=== PATIENT | male | born 1985 | race Caucasian/White ===

== ENCOUNTER 2020-01-17 23:18 | Inpatient (IN) | payer BC ==
--- NOTE | 2020-01-18 00:31 | ED ---
Recheck HPI - General Chief Complaint: Recheck/Abnormal Lab/Rx Stated Complaint: Facial swelling Time Seen by Provider: 01/17/20 23:42 Source: patient Mode of arrival: ambulatory Limitations: no limitations - Related Data Allergies Allergy/AdvReac Type Severity Reaction Status Date / Time codeine AdvReac Nausea & Verified 01/17/20 23:40 Vomiting Review of Systems ROS Statement: Those systems with pertinent positive or pertinent negative responses have been documented in the HPI. ROS Other: All systems not noted in ROS Statement are negative. Past Medical History Past Medical History: No Reported History History of Any Multi-Drug Resistant Organisms: None Reported Past Surgical History: Tonsillectomy Additional Past Surgical History / Comment(s): chest surgery Past Psychological History: No Psychological Hx Reported Smoking Status: Never smoker Past Alcohol Use History: Occasional Past Drug Use History: None Reported General Exam Limitations: no limitations Course Vital Signs 01/17/20 01/18/20 23:35 01:24 Temperature 99.8 F H 99.5 F Pulse Rate 86 96 Respiratory 16 18 Rate Blood Pressure 129/82 120/77 O2 Sat by Pulse 100 100 Oximetry Disposition Clinical Impression: Facial cellulitis, Failure of outpatient treatment Disposition: ADMITTED IP TO THIS [facility] Condition: Good Is patient prescribed a controlled substance at d/c from ED?: No Referrals: Alvaro Hayes MD [Primary Care Provider] - 1-2 days
[2020-01-18] MEDS ORDERED: KETOROLAC 30 MG/ML 1 ML VIAL IVP STA (01:06)
[2020-01-18] MEDS ORDERED: SODIUM CHLORIDE 0.9% 500 ML 500 ML IV STA (01:06)
[2020-01-18] MEDS ORDERED: SODIUM CHLORIDE 0.9% 1,000 ML IV STA (01:06)
[2020-01-18] MEDS ORDERED: VANCOMYCIN IV PER PHARMACY 1 EACH MISC MISCELLANE PRN ×2 (01:06→20:29)
[2020-01-18] MEDS ORDERED: DEXAMETHASONE SOD PHOSPHATE 10 MG/ML 1 ML VIAL IV STA (01:06)
[2020-01-18] MEDS ORDERED: VANCOMYCIN 1,250 MG in SODIUM CHLORIDE 0.9% 250 ML IVPB ONE ×2 (02:00→10:00)
[2020-01-18] MEDS: MUPIROCIN 2% OINT 22 GM TUBE TOPICAL SCH ×4 (02:03→22:05)
[2020-01-18] MEDS ORDERED: SODIUM CHLORIDE 0.9% 1,000 ML IV ONE (02:20)
[2020-01-18 08:52] LABS: Basophils % (A) 0 %; Eosinophils % (A) 0 %; HCT 44.4 % (39.0-53.0); Lymphocytes # (A) 0.4 k/uL (1.0-4.8); Lymphocytes % (A) 4 %; MCH 32.2 pg (25.0-35.0); MCHC 33.9 g/dL (31.0-37.0); MCV 95.2 fL (80.0-100.0); Monocytes # (A) 0.2 k/uL (0-1.0); Monocytes % (A) 2 %; Neutrophils # (A) 11.7 k/uL (1.3-7.7); Neutrophils % (A) 94 %; Platelet Count 260 k/uL (150-450); RBC 4.67 m/uL (4.30-5.90); RDW 12.3 % (11.5-15.5); WBC 12.5 k/uL (3.8-10.6)
[2020-01-18 09:15] LABS: African American GFR (CKD) >90 (>60 ml/min/1.73 sqM); Anion Gap 10 mmol/L; Blood Urea Nitrogen 20 mg/dL (9-20); Calcium 8.8 mg/dL (8.4-10.2); Carbon Dioxide 24 mmol/L (22-30); Chloride 104 mmol/L (98-107); Glucose 212 mg/dL (74-99); Non-African American GFR(CKD) >90 (>60 ml/min/1.73 sqM); Potassium 4.7 mmol/L (3.5-5.1); Sodium 138 mmol/L (137-145)
[2020-01-18] MEDS: NAPROXEN 250 MG TAB PO SCH ×3 (13:44→22:03)
[2020-01-18] MEDS: VANCOMYCIN 1,000 MG in SODIUM CHLORIDE 0.9% 250 ML IVPB SCH (17:34)
--- NOTE | 2020-01-18 20:38 | P.HPIM ---
History of Present Illness H&P Date: 01/18/20 Chief Complaint: Infection of the cheek History of presenting complaint: This is a pleasant 34-year-old patient of Dr. Hayes. In rather good health. Patient about 4 weeks ago started getting what he thought was a requiring infection of the right cheek. Patient was using some wysh-bks-nbnfohq cream. Does some improvement in the last 2 weeks he started getting worse. Patient does use a razor on his face and shaves every day. Started becoming painful and red. More swollen on the right side. Patient also had similar lesions on the left side. Patient last shaved was about 3 days ago. Patient has multiple areas of red areas with some discharge and tenderness on the right side of the face. Also on the left side of the face in the acevedo area. Denies any fever an d chills. No toothache. Patient is able to chew. Able to get around. Review of systems: GEN.: None EYES: None HEENT: None NECK: None RESPIRATORY: None CARDIOVASCULAR: None GASTROINTESTINAL: None GENITOURINARY: None MUSCULOSKELETAL: None LYMPHATICS: None HEMATOLOGICAL: None PSYCHIATRY: None NEUROLOGICAL: None Past medical history to include: Unremarkable Social history: . Does not smoke. Alcohol occasionally. 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 EYES: Pupils equal. Conjunctiva normal. HEENT: External appearance of nose and ears normal, oral cavity grossly normal. Patient has multiple areas of abscess in the acevedo area, comfortable. Speech on the right side also noticed scattered on the left side more so in the hair foll icle area. Patient has a very slight about 2-3 mm acevedo. Areas of redness surrounding the same. NECK: JVD not raised; masses not palpable. HEART: First and second heart sounds are normal; no edema. LUNGS: Respiratory rate normal; clear to auscultation. ABDOMEN: Soft, nontender, liver spleen not palpable, no masses palpable. PSYCH: Alert and oriented x3; mood and affect normal. NEUROLOGICAL: Cranial nerves grossly intact; no facial asymmetry, power and sensation grossly intact. LYMPHATICS: No lymph nodes palpable in the axilla and neck Assessment: -This is a patient is at 4 weeks of infection and the acevedo area has use of ekhj-luh-azfmlxn medications and discontinued uses a razor up to 4 days ago. Patient seems to have a combination of erysipelas and multiple folliculitis with repeated infections. And surrounding cellulitis. Plan: Patient started on vancomycin. Left pharmacy dose the same. Patient is ambulatory. We'll add naproxen 5 to telemetry affect. Patient starting a diet. Also Bactroban ointment has been given. Advised not to shave for the present time. Not to scratch the area. ID consultation was done. Past Medical History Past Medical History: No Reported History History of Any Multi-Drug Resistant Organisms: None Reported Past Surgical History: Coronary Bypass/CABG, Tonsillectomy Additional Past Surgical History / Comment(s): chest surgery for pigeon chest when he was 14 Past Anesthesia/Blood Transfusion Reactions: No Reported Reaction Past Psychological History: No Psychological Hx Reported Smoking Status: Never smoker Past Alcohol Use History: Occasional Past Drug Use History: None Reported - Past Family History Father Family Medical History: No Reported History Mother Family Medical History: No Reported History Medications and Allergies Home Medications Medication Instructions Recorded Confirmed Type Sulfamethoxazole/Trimethoprim 1 each PO BID 01/18/20 01/18/20 History [Bactrim DS 800-160 mg] Allergies Allergy/AdvReac Type Severity Reaction Status Date / Time codeine AdvReac Nausea & Verified 01/18/20 09:19 Vomiting Physical Exam Vitals: Vital Signs Temp Pulse Pulse Resp BP BP Pulse Ox 01/18/20 09:07 16 01/18/20 07:00 97.9 F 90 16 99/63 94 L 01/18/20 03:51 16 01/18/20 03:32 98.5 F 92 18 108/71 97 01/18/20 02:50 98.7 F 94 14 111/57 95 01/18/20 01:24 99.5 F 96 18 120/77 100 01/17/20 23:35 99.8 F H 86 16 129/82 100 Intake and Output 01/17/20 01/18/20 01/18/20 22:59 06:59 14:59 Intake Total 250 Balance 250 Intake: Intake, IV Titration 250 Amount Vancomycin 1,250 mg In 250 Sodium Chloride 0.9% 250 ml @ 125 mls/hr IVPB ONCE ONE Rx#:[id number] Other: Weight 70.76 kg Results CBC & Chem 7: 01/18/20 08:22 01/18/20 08:22 Labs: Abnormal Lab Results - Last 24 Hours (Table) 01/18/20 01/18/20 Range/Units 08:22 08:22 WBC 12.5 H (3.8-10.6) k/uL Neutrophils # 11.7 H (1.3-7.7) k/uL Lymphocytes # 0.4 L (1.0-4.8) k/uL Glucose 212 H (74-99) mg/dL Thrombosis Risk Factor Assmnt - Choose All That Apply Any of the Below Risk Factors Present?: No Other Risk Factors: No Other congenital or acquired thrombophilia - If yes, enter type in comment: No Thrombosis Risk Factor Assessment Level: Very Low Risk
--- NOTE | 2020-01-19 01:25 | P.CONS ---
History of Present Illness - Reason for Consult Consult date: 01/18/20 Facial cellulitis Requesting physician: Nicola Thomas - Chief Complaint right sided facial swelling and redness x 4 weeks - History of Present Illness Patient is a 34-year-old male otherwise healthy started getting sick about 4 weeks ago when the patient developed a small area of irritation on his right side of facial area patient thought it was a ringworm infection and start using some ehlr-nmh-ucwpqkf cream did not have any improvement after he shaved the area it has spread becoming more swollen red and painful for the patient has been evaluated the outpatient setting by his primary care physician and the patient was treated with a course of oral Bactrim DS however the patient did not have resolution he was noticed to have worsening swelling and redness of the right side of the face and has become more swollen and discomfort more of a dull aching pain about 5-6 out of 10 and radiation denies significant purulent drainage from the area or high-grade fever with the symptom the patient went to the local ER. Patient did have a CT of the face he has been diagnosed with a facial cellulitis subsequently patient be transferred to the [facility] for further management of underlying cellulitis on admission to this facility the patient did have low-grade fever of 99.8 he did have white count of 12.5 patient was started on vancomycin pharmacy to dose infectious was consulted for further management of antibiotic therapy. Review of Systems Positive point has been mentioned in HPI rest of the systems are negative Past Medical History Past Medical History: No Reported History History of Any Multi-Drug Resistant Organisms: None Reported Past Surgical History: Coronary Bypass/CABG, Tonsillectomy Additional Past Surgical History / Comment(s): chest surgery for pigeon chest when he was 14 Past Anesthesia/Blood Transfusion Reactions: No Reported Reaction Past Psychological History: No Psychological Hx Reported Smoking Status: Never smoker Past Alcohol Use History: Occasional Past Drug Use History: None Reported - Past Family History Father Family Medical History: No Reported History Mother Family Medical History: No Reported History Medications and Allergies Home Medications Medication Instructions Recorded Confirmed Type Sulfamethoxazole/Trimethoprim 1 each PO BID 01/18/20 01/18/20 History [Bactrim DS 800-160 mg] Allergies Allergy/AdvReac Type Severity Reaction Status Date / Time codeine AdvReac Nausea & Verified 01/18/20 09:19 Vomiting Physical Exam Vitals: Vital Signs Temp Pulse Pulse Resp BP BP Pulse Ox 01/18/20 15:34 16 01/18/20 15:00 98.5 F 77 16 109/66 95 01/18/20 09:07 16 01/18/20 07:00 97.9 F 90 16 99/63 94 L 01/18/20 03:51 16 01/18/20 03:32 98.5 F 92 18 108/71 97 01/18/20 02:50 98.7 F 94 14 111/57 95 01/18/20 01:24 99.5 F 96 18 120/77 100 01/17/20 23:35 99.8 F H 86 16 129/82 100 Intake and Output 01/18/20 01/18/20 01/18/20 06:59 14:59 22:59 Intake Total 250 1030 Balance 250 1030 Intake: Intake, IV Titration 250 850 Amount Sodium Chloride 0.9% 1, 600 000 ml @ 100 mls/hr IV . Q10H ONE Rx#:[id number] Vancomycin 1,250 mg In 250 Sodium Chloride 0.9% 250 ml @ 125 mls/hr IVPB ONCE ONE Rx#:[id number] Vancomycin 1,250 mg In 250 Sodium Chloride 0.9% 250 ml @ 125 mls/hr IVPB ONCE ONE Rx#:[id number] Oral 180 Other: # Voids 1 1 Weight 70.76 kg GENERAL DESCRIPTION: Middle-aged male lying in bed, no distress. No tachypnea or accessory muscle of respiration use. HEENT: Shows Pallor , no scleral icterus. Oral mucous membrane is dry. NECK: Trachea central, no thyromegaly. LUNGS: Unlabored breathing. Clear to auscultation anteriorly. No wheeze or crackle. HEART: S1, S2, regular rate and rhythm. ABDOMEN: Soft, no tenderness , guarding or rigidity EXTREMITIES: No edema of feet. SKIN: Right facial area with evidence of diffuse folliculitis and swelling and redness no purulent drainage. NEUROLOGICAL: The patient is awake, alert, oriented x3, mood and affect normal Results CBC & Chem 7: 01/18/20 08:22 01/18/20 08:22 Labs: Abnormal Lab Results - Last 24 Hours (Table) 01/18/20 01/18/20 Range/Units 08:22 08:22 WBC 12.5 H (3.8-10.6) k/uL Neutrophils # 11.7 H (1.3-7.7) k/uL Lymphocytes # 0.4 L (1.0-4.8) k/uL Glucose 212 H (74-99) mg/dL Assessment and Plan Assessment: -patient admitted hospital with right facial cellulitis that has started as a folliculitis more likely a streptococcal infection that has failed to respond to outpatient Bactrim DS therapy more likely because of the burden of disease (1) Facial cellulitis Current Visit: Yes Status: Acute Code(s): L03.211 - CELLULITIS OF FACE SNO MED Code(s): 409656940 (2) Failure of outpatient treatment Current Visit: Yes Status: Acute Code(s): Z78.9 - OTHER SPECIFIED HEALTH STATUS SNOMED Code(s): 165516861 Plan: 1-we will obtain local wound cultures if the area started to drain 2-vancomycin pharmacy to dose her with a target trough of 15 while watching her kidney function and Vanco trough closely. We will follow on clinical condition and cultures to further adjust medication if needed Thank you for this consultation we will follow the patient along with you Time with Patient: Greater than 30
[2020-01-19] MEDS: VANCOMYCIN 1,000 MG in SODIUM CHLORIDE 0.9% 250 ML IVPB SCH ×3 (02:47→17:34)
[2020-01-19 07:49] LABS: African American GFR (CKD) >90 (>60 ml/min/1.73 sqM); Non-African American GFR(CKD) >90 (>60 ml/min/1.73 sqM)
[2020-01-19] MEDS: NAPROXEN 250 MG TAB PO SCH ×3 (09:39→20:31)
[2020-01-19] MEDS: MUPIROCIN 2% OINT 22 GM TUBE TOPICAL SCH ×3 (09:40→20:32)
[2020-01-19] MEDS ORDERED: VANCOMYCIN TROUGH DUE 1 EACH MISC MISCELLANE ONE (17:00)
--- NOTE | 2020-01-19 21:15 | P.PN ---
Progress Note - Text Progress Note Date: 01/19/20 Chief Complaint: Infection of the cheek History of presenting complaint: This is a pleasant 34-year-old patient of Dr. Hayes. In rather good health. Patient about 4 weeks ago started getting what he thought was a requiring infection of the right cheek. Patient was using some mnhs-yyy-gzbqwoc cream. Does some improvement in the last 2 weeks he started getting worse. Patient does use a razor on his face and shaves every day. Started becoming painful and red. More swollen on the right side. Patient also had similar lesions on the left side. Patient last shaved was about 3 days ago. Patient has multiple areas of red areas with some discharge and tenderness on the right side of the face. Also on the left side of the face in the acevedo area. Denies any fever and chills. No toothache. Patient is able to chew. Able to get around. Admitted with severe cellulitis and follow colitis of both the cheeks more on the right side Today-pain is slightly better controlled. Getting IV vancomycin. Up and about in the room. Tolerating a diet. Review of systems: Was done for constitutional, cardiovascular, GI, pulmonary. relevant finding as above Active Medications Vancomycin HCl 1,000 mg/ (Sodium Chloride) 250 mls @ 125 mls/hr IVPB Q8H [facility] Last Admin: 01/19/20 17:34 Dose: 125 mls/hr Documented by: Mupirocin (Bactroban Oint) 1 applic TOPICAL TID [facility] Last Admin: 01/19/20 20:32 Dose: 1 applic Documented by: Naproxen (Naprosyn) 250 mg PO TID [facility] Last Admin: 01/19/20 20:31 Dose: 250 mg Documented by: Physical examination: VITAL SIGNS: 97.9, 103, 16, 124/71, 93% on room air GENERAL:, comfortable. EYES: Pupils equal. Conjunctiva normal. HEENT: External appearance of nose and ears normal, oral cavity grossly normal. Patient has multiple areas of abscess in the acevedo area, comfortable. Speech on the right side also noticed scattered on the left side more so in the hair follicle area. Patient has a very slight about 2-3 mm acevedo. Areas of redness surrounding the same. NECK: JVD not raised; masses not palpable. HEART: First and second heart sounds are normal; no edema. LUNGS: Respiratory rate normal; clear to auscultation. ABDOMEN: Soft, nontender, liver spleen not palpable, no masses palpable. PSYCH: Alert and oriented x3; mood and affect normal. Assessment: -This is a patient is at 4 weeks of infection and the acevedo area has use of havg-hjg-tirjpin medications and discontinued uses a razor up to 4 days ago. Patient seems to have a combination of erysipelas and multiple folliculitis with repeated infections. And surrounding cellulitis.-Slow to respond Plan: Continue vancomycin until inflammation. Discussed with Dr. Antoine from ID. We'll follow the patient and he daily to determine when patient stable to go home..
--- NOTE | 2020-01-20 02:05 | PN ---
PROGRESS NOTE DATE OF SERVICE: 01/19/2020 REASON FOR FOLLOWUP: Right facial abscess and cellulitis. INTERVAL HISTORY: The patient is currently afebrile. The patient right facial swelling and redness have slightly decreased. The patient denies having any chest pain, shortness of breath or cough. No abdominal pain or diarrhea. PHYSICAL EXAMINATION: Blood pressure 124/74 with a pulse of 83, temperature 98.5. He is 96% on room air. General description is a middle-aged male up in the bed in no distress. HEENT EXAMINATION: Right facial area swelling and redness minimally decreased. LUNGS: Unlabored breathing, clear to auscultation anteriorly. HEART: S1, S2. Regular rate and rhythm. ABDOMEN: Soft, no tenderness. LABS: No new labs have been obtained today. DIAGNOSTIC IMPRESSION AND PLAN: Patient with right facial abscess and cellulitis with diffuse folliculitis, likely streptococcal disease. The patient is covered with vancomycin to continue. Culture had been obtained to guide antibiotic therapy further and continue with supportive care. MMODL / IJN: [id number] /
[2020-01-20] MEDS: VANCOMYCIN 1,000 MG in SODIUM CHLORIDE 0.9% 250 ML IVPB SCH ×3 (03:18→17:47)
[2020-01-20 07:47] LABS: Basophils % (A) 0 %; Eosinophils # (A) 0.2 k/uL (0-0.7); Eosinophils % (A) 1 %; Lymphocytes # (A) 0.9 k/uL (1.0-4.8); Lymphocytes % (A) 9 %; MCH 33.3 pg (25.0-35.0); MCHC 34.8 g/dL (31.0-37.0); MCV 95.8 fL (80.0-100.0); Mean Platelet Volume 6.8; Monocytes # (A) 0.7 k/uL (0-1.0); Monocytes % (A) 7 %; Neutrophils # (A) 8.5 k/uL (1.3-7.7); Neutrophils % (A) 81 %; Platelet Count 241 k/uL (150-450); RBC 4.49 m/uL (4.30-5.90); RDW 12.3 % (11.5-15.5); WBC 10.4 k/uL (3.8-10.6)
[2020-01-20] MEDS: NAPROXEN 250 MG TAB PO SCH ×3 (08:06→20:37)
[2020-01-20] MEDS: MUPIROCIN 2% OINT 22 GM TUBE TOPICAL SCH ×3 (08:07→20:37)
[2020-01-20 08:56] LABS: African American GFR (CKD) >90 (>60 ml/min/1.73 sqM); Anion Gap 7 mmol/L; Blood Urea Nitrogen 12 mg/dL (9-20); Calcium 8.7 mg/dL (8.4-10.2); Carbon Dioxide 28 mmol/L (22-30); Chloride 105 mmol/L (98-107); Glucose 87 mg/dL (74-99); Non-African American GFR(CKD) >90 (>60 ml/min/1.73 sqM); Potassium 4.7 mmol/L (3.5-5.1); Sodium 140 mmol/L (137-145)
--- NOTE | 2020-01-20 19:34 | P.PN ---
Progress Note - Text Progress Note Date: 01/20/20 Chief Complaint: Infection of the cheek History of presenting complaint: This is a pleasant 34-year-old patient of Dr. Hayes. In rather good health. Patient about 4 weeks ago started getting what he thought was a requiring infection of the right cheek. Patient was using some ovfp-tzq-xsacqpg cream. Does some improvement in the last 2 weeks he started getting worse. Patient does use a razor on his face and shaves every day. Started becoming painful and red. More swollen on the right side. Patient also had similar lesions on the left side. Patient last shaved was about 3 days ago. Patient has multiple areas of red areas with some discharge and tenderness on the right side of the face. Also on the left side of the face in the acevedo area. Denies any fever and chills. No toothache. Patient is able to chew. Able to get around. Admitted with severe cellulitis and folliculitis of both the cheeks more on the right side Today-patient continues to get IV vancomycin. Pain and swelling slightly improving on the right side. Patient actually does feel better. Review of systems: Was done for constitutional, cardiovascular, GI, pulmonary. relevant finding as above Active Medications Vancomycin HCl 1,000 mg/ (Sodium Chloride) 250 mls @ 125 mls/hr IVPB Q8H [facility] Last Admin: 01/20/20 17:47 Dose: 125 mls/hr Documented by: Miscellaneous Information (Vancomycin Trough Due) 0 each MISCELLANE DIRECTED ONE Stop: 01/21/20 09:01 Mupirocin (Bactroban Oint) 1 applic TOPICAL TID [facility] Last Admin: 01/20/20 16:08 Dose: 1 applic Documented by: Naproxen (Naprosyn) 250 mg PO TID [facility] Last Admin: 01/20/20 16:08 Dose: 250 mg Documented by: Physical examination: VITAL SIGNS: 98.5, 77, 16, 120/74, 96% on room air GENERAL:, comfortable. EYES: Pupils equal. Conjunctiva normal. HEENT: External appearance of nose and ears normal, oral cavity grossly normal. Patient has multiple areas of abscess in the acevedo area, comfortable. More on the right side compared to the left side. Scattered areas also. Slight improv ement on the right side. NECK: JVD not raised; masses not palpable. HEART: First and second heart sounds are normal; no edema. LUNGS: Respiratory rate normal; clear to auscultation. ABDOMEN: Soft, nontender, liver spleen not palpable, no masses palpable. PSYCH: Alert and oriented x3; mood and affect normal. Assessment: -This is a patient is at 4 weeks of infection and the acevedo area has use of ruao-bjf-secooxi medications and discontinued uses a razor up to 4 days ago. Patient seems to have a combination of erysipelas and multiple folliculitis with repeated infections. And surrounding cellulitis.-Improving slowly Plan: Continue with IV vancomycin and anti-inflammatory. Patient slowly improving. Discussed with the patient. At least 1 over 2 more days in the hospital depe nding on clinical course and discussion with ID.
--- NOTE | 2020-01-20 23:06 | PN ---
PROGRESS NOTE DATE OF SERVICE: 01/20/2020 REASON FOR FOLLOWUP: Right facial cellulitis. INTERVAL HISTORY: The patient is currently afebrile. The patient's right facial area pain and swelling have slightly improved. He did have some drainage. No chest pain, shortness of breath or cough. No abdominal pain or diarrhea. PHYSICAL EXAMINATION: Blood pressure is 123/71 with a pulse of 101, temperature 99.3. He is 95% on room air. General description is a middle-aged male up in the bed in no distress. HEENT EXAMINATION: Right facial area swelling and redness slightly decreased. LUNGS: Unlabored breathing. Clear to auscultation anteriorly. HEART: S1, S2. Regular rate and rhythm. ABDOMEN: Soft. No tenderness. LABS: Hemoglobin 15.0, white count of 10.4, creatinine 0.77. Vancomycin trough is slightly low at 11.3. DIAGNOSTIC IMPRESSION AND PLAN: Patient with right facial cellulitis and abscess with slow clinical response to antibiotic; could be because of the low vancomycin trough. Dose to be adjusted up. With the culture so far negative for any MRSA, we will add cefazolin 2 grams q.8 hours and see the response to it. Will wait for the culture to determine his discharge antibiotics. Continue with supportive care. MMODL / IJN: [id number] /
[2020-01-21] MEDS: VANCOMYCIN 1,000 MG in SODIUM CHLORIDE 0.9% 250 ML IVPB SCH (03:18)
[2020-01-21] MEDS: NAPROXEN 250 MG TAB PO SCH ×3 (07:43→20:12)
[2020-01-21] MEDS: MUPIROCIN 2% OINT 22 GM TUBE TOPICAL SCH ×3 (07:45→20:13)
[2020-01-21 08:27] LABS: African American GFR (CKD) >90 (>60 ml/min/1.73 sqM); Non-African American GFR(CKD) >90 (>60 ml/min/1.73 sqM)
[2020-01-21] MEDS ORDERED: VANCOMYCIN TROUGH DUE 1 EACH MISC MISCELLANE ONE (09:00)
[2020-01-21] MEDS: VANCOMYCIN 1,250 MG in SODIUM CHLORIDE 0.9% 250 ML IVPB SCH ×2 (10:11→17:32)
--- NOTE | 2020-01-21 14:20 | PN ---
PROGRESS NOTE DATE OF SERVICE: 01/21/2020 REASON FOR FOLLOWUP: Right facial abscess and cellulitis noted. The patient is currently afebrile. The patient is breathing comfortably. Right facial swelling, redness, induration, slightly decreased area has started to drain. Denies having any chest pain or cough. No abdominal pain and no diarrhea. PHYSICAL EXAMINATION: Blood pressure 123/75 with a pulse of 73, temperature 98.4, he is 97% on room air. General description is a middle-aged male, lying in bed in no distress. RESPIRATORY SYSTEM: Unlabored breathing, clear to auscultation anteriorly. HEART: S1, S2. Regular rate and rhythm. ABDOMEN: Soft, no tenderness. Right facial area swelling and redness has slightly decreased. Did have slight purulent drainage from those cultures. LABS: Vanco level therapeutic at 14.4, creatinine 0.75. Initial culture has been negative so far. DIAGNOSTIC IMPRESSION AND PLAN: Patient with right facial abscess and cellulitis. Some drainage was noticed. Surgery has been consulted to see the need for any surgical drainage. For now we will keep the patient on vancomycin and cefazolin. Repeat culture has been obtained to help determine discharge antibiotics. Plan of care was discussed with the admitting physician. MMODL / IJN: [id number] /
--- NOTE | 2020-01-21 23:13 | P.PN ---
Progress Note - Text Progress Note Date: 01/21/20 Chief Complaint: Infection of the cheek History of presenting complaint: This is a pleasant 34-year-old patient of Dr. Hayes. In rather good health. Patient about 4 weeks ago started getting what he thought was a requiring infection of the right cheek. Patient was using some oyah-ipg-mbrmomb cream. Does some improvement in the last 2 weeks he started getting worse. Patient does use a razor on his face and shaves every day. Started becoming painful and red. More swollen on the right side. Patient also had similar lesions on the left side. Patient last shaved was about 3 days ago. Patient has multiple areas of red areas with some discharge and tenderness on the right side of the face. Also on the left side of the face in the acevedo area. Denies any fever and chills. No toothache. Patient is able to chew. Able to get around. Admitted with severe cellulitis and folliculitis of both the cheeks more on the right side Today-pain swelling slowly improving on the right cheek. Drainage still present. Tolerating a diet. Antibiotic was switched to IV Ancef by Dr. Saeed. escobar Review of systems: Was done for constitutional, cardiovascular, GI, pulmonary. relevant finding as above Active Medications Cefazolin Sodium 2 gm/ Sodium (Chloride) 50 mls @ 100 mls/hr IVPB Q8HR [facility] Last Admin: 01/21/20 17:00 Dose: 100 mls/hr Documented by: Vancomycin HCl 1,250 mg/ (Sodium Chloride) 250 mls @ 125 mls/hr IVPB Q8H [facility] Last Admin: 01/21/20 17:32 Dose: 125 mls/hr Documented by: Mupirocin (Bactroban Oint) 1 applic TOPICAL TID [facility] Last Admin: 01/21/20 20:13 Dose: 1 applic Documented by: Naproxen (Naprosyn) 250 mg PO TID [facility] Last Admin: 01/21/20 20:12 Dose: 250 mg Documented by: Physical examination: VITAL SIGNS: 98.6, 90, 16, 100 3581, 98% room air GENERAL:, comfortable. EYES: Pupils equal. Conjunctiva normal. HEENT: External appearance of nose and ears normal, oral cavity grossly normal. Patient has multiple areas of abscess in the acevedo area, comfortable. More on the right side compared to the left side. Scattered areas also. improvement on the right side. NECK: JVD not raised; masses not palpable. HEART: First and second heart sounds are normal; no edema. LUNGS: Respiratory rate normal; clear to auscultation. ABDOMEN: Soft, nontender, liver spleen not palpable, no masses palpable. PSYCH: Alert and oriented x3; mood and affect normal. INVESTIGATIONS, reviewed in the clinical context: White count 10.4 hemoglobin 15 potassium 4.7 Wound culture-negative Admission labs: White count 12.5 Assessment: -This is a patient is at 4 weeks of infection and the acevedo area has use of vydg-fvv-xcmlswq medications and discontinued uses a razor up to 4 days ago. Patient seems to have a combination of erysipelas and multiple folliculitis with repeated infections. And surrounding cellulitis.-Improving slowly -Leukocytosis from infection-improving Plan: -Patient on IV Ancef. Discussed with Dr. Antoine from ID. And the patient. Repeat cultures are being done. We'll like to give another day of IV antibiotic.
[2020-01-22] MEDS: VANCOMYCIN 1,250 MG in SODIUM CHLORIDE 0.9% 250 ML IVPB SCH ×3 (03:03→18:09)
--- NOTE | 2020-01-22 07:28 | P.GSCN ---
History of Present Illness Consult date: 01/21/20 Reason for Consult: facial abscess Requesting physician: Nicola Thomas History of present illness: CHIEF COMPLAINT: Facial abscess HISTORY OF PRESENT ILLNESS: 34 male who was admitted to the hospital secondary to a facial abscess. General surgery was consulted for further evaluation and possible drainage. PAST MEDICAL HISTORY: See list. PAST SURGICAL HISTORY: See list. SOCIAL HISTORY: No illicit drug use. REVIEW OF SYSTEMS: CONSTITUTIONAL: Denies fever or chills. HEENT: Denies blurred vision, vision changes, or eye pain. Denies hemoptysis CARDIOVASCULAR: Denies chest pain or pressure. RESPIRATORY: No shortness of breath. GASTROINTESTINAL: Denies abdominal pain. Denies nausea vomiting HEMATOLOGIC: Denies bleeding disorders. GENITOURINARY: Denies any blood in urine. SKIN: Denies pruitis. Denies rash. Reports facial abscess PHYSICAL EXAM: VITAL SIGNS: Reviewed. GENERAL: Well-developed in no acute distress. HEENT: No sclera icterus. Extraocular movements grossly intact. Moist buccal mucosa. Head is atraumatic, normocephalic. ABDOMEN: Soft. Nondistended. Nontender. NEUROLOGIC: Alert and oriented. Cranial nerves II through XII grossly intact. SKIN: Patient with abscess to right and left side of jawline LABORATORY DATA: WBC 10.4. Hemoglobin 15.0. Platelet count 241. Wound culture in progress ASSESSMENT: 1. Facial abscess PLAN: -Continue antibiotics -Await wound culture results -Infectious disease following -Continue with nonsurgical treatment at this time. Patient will be reevaluated tomorrow for possible incision and drainage of left sided abscess. Nurse practitioner note has been reviewed by physician. Signing provider agrees with the documented findings, assessment, and plan of care. Past Medical History Past Medical History: No Reported History History of Any Multi-Drug Resistant Organisms: None Reported Past Surgical History: Coronary Bypass/CABG, Tonsillectomy Additional Past Surgical History / Comment(s): chest surgery for pigeon chest when he was 14 Past Anesthesia/Blood Transfusion Reactions: No Reported Reaction Past Psychological History: No Psychological Hx Reported Smoking Status: Never smoker Past Alcohol Use History: Occasional Past Drug Use History: None Reported - Past Family History Father Family Medical History: No Reported History Mother Family Medical History: No Reported History Medications and Allergies Home Medications Medication Instructions Recorded Confirmed Type Sulfamethoxazole/Trimethoprim 1 each PO BID 01/18/20 01/18/20 History [Bactrim DS 800-160 mg] Allergies Allergy/AdvReac Type Severity Reaction Status Date / Time codeine AdvReac Nausea & Verified 01/18/20 09:19 Vomiting Surgical - Exam Vital Signs Temp Pulse Resp BP Pulse Ox 99.8 F H 86 16 129/82 100 01/17/20 23:35 01/17/20 23:35 01/17/20 23:35 01/17/20 23:35 01/17/20 23:35 Results - Labs 01/20/20 06:57 01/21/20 07:55 Microbiology - Last 24 Hours (Table) 01/19/20 17:45 Gram Stain - Preliminary Face Wound Culture - Preliminary 01/19/20 14:30 Gram Stain - Preliminary Face Wound Culture - Preliminary Diabetes panel 01/21/20 Range/Units 07:55 Creatinine 0.75 (0.66-1.25) mg/dL Pituitary panel 01/21/20 Range/Units 07:55 Creatinine 0.75 (0.66-1.25) mg/dL Adrenal panel 01/21/20 Range/Units 07:55 Creatinine 0.75 (0.66-1.25) mg/dL
[2020-01-22] MEDS: NAPROXEN 250 MG TAB PO SCH ×3 (08:56→21:54)
[2020-01-22] MEDS: MUPIROCIN 2% OINT 22 GM TUBE TOPICAL SCH ×3 (08:57→21:54)
--- NOTE | 2020-01-22 15:04 | P.PN ---
Subjective Progress Note Date: 01/22/20 CHIEF COMPLAINT: Facial abscess HISTORY OF PRESENT ILLNESS: Patient seen and examined at the bedside. Patient states his pain is tolerable. Wound culture is negative for growth at 48 hours. Vital signs stable. Patient is afebrile. PHYSICAL EXAM: VITAL SIGNS: Reviewed. GENERAL: Well-developed in no acute distress. HEENT: No sclera icterus. Extraocular movements grossly intact. Moist buccal mucosa. Head is atraumatic, normocephalic. ABDOMEN: Soft. Nondistended. Nontender. NEUROLOGIC: Alert and oriented. Cranial nerves II through XII grossly intact. SKIN: Patient with abscess to right and left side of jawline ASSESSMENT: 1. Facial abscess PLAN: -Continue antibiotics -Infectious disease following -No surgical intervention recommended at this time per Dr. Moraes Nurse practitioner note has been reviewed by physician. Signing provider agrees with the documented findings, assessment, and plan of care. Objective - Vital Signs Vital signs: Vital Signs Temp 98.6 F 01/22/20 07:00 Pulse 78 01/22/20 07:00 Resp 16 01/22/20 07:00 BP 128/83 01/22/20 07:00 Pulse Ox 96 01/22/20 07:00 Intake & Output 01/21/20 01/22/20 01/22/20 18:59 06:59 18:59 Intake Total 400 Balance 400 Intake: Intake, IV Titration 300 Amount Vancomycin 1,250 mg In 250 Sodium Chloride 0.9% 250 ml @ 125 mls/hr IVPB Q8H [facility] Rx#:[id number] ceFAZolin 2 gm In Sodium 50 Chloride 0.9% 50 ml @ 100 mls/hr IVPB Q8HR [facility] Rx# :[id number] Oral 100 Other: Voiding Method Toilet Toilet Toilet # Voids 2 1 - Labs CBC & Chem 7: 01/20/20 06:57 01/21/20 07:55 Labs: Microbiology - Last 24 Hours (Table) 01/21/20 12:40 Gram Stain - Preliminary Face Wound Culture - Preliminary 01/19/20 17:45 Gram Stain - Final Face Wound Culture - Final 01/19/20 14:30 Gram Stain - Final Face Wound Culture - Final
--- NOTE | 2020-01-22 16:19 | PN ---
PROGRESS NOTE DATE OF SERVICE: 01/22/2020 REASON FOR FOLLOWUP: Right facial abscess and cellulitis. INTERVAL HISTORY: The patient is currently afebrile. The patient is breathing comfortably. Right facial pain and swelling have improved. Still has some drainage. No nausea, no vomiting, no abdominal pain or diarrhea. PHYSICAL EXAMINATION: Blood pressure 128/83 with a pulse of 78, temperature 98.6. He is 96% on room air. General description is a middle-aged male up in the room in no distress. Right facial area swelling and redness have slightly decreased; less drainage. LUNGS: Unlabored breathing. Clear to auscultation anteriorly. HEART: S1, S2. Regular rate and rhythm. ABDOMEN: Soft. No tenderness. LABS: No new labs have been obtained today. Wound culture obtained yesterday is showing Gram- positive cocci. DIAGNOSTIC IMPRESSION AND PLAN: Patient with right facial abscess and cellulitis. Patient postponed any drainage. Covered with cefazolin and vancomycin; will continue while waiting for the cultures to finalize. Hopefully finish therapy with oral antibiotics. Continue with supportive care. MMODL / IJN: [id number] /
--- NOTE | 2020-01-22 19:49 | P.PN ---
Progress Note - Text Progress Note Date: 01/22/20 Chief Complaint: Infection of the cheek History of presenting complaint: This is a pleasant 34-year-old patient of Dr. Hayes. In rather good health. Patient about 4 weeks ago started getting what he thought was a requiring infection of the right cheek. Patient was using some ucpa-seq-hgratop cream. Does some improvement in the last 2 weeks he started getting worse. Patient does use a razor on his face and shaves every day. Started becoming painful and red. More swollen on the right side. Patient also had similar lesions on the left side. Patient last shaved was about 3 days ago. Patient has multiple areas of red areas with some discharge and tenderness on the right side of the face. Also on the left side of the face in the acevedo area. Denies any fever and chills. No toothache. Patient is able to chew. Able to get around. Admitted with severe cellulitis and folliculitis of both the cheeks more on the right side Today-continues to improve. Swelling going down. One of the abscesses drained on its own this morning. Review of systems: Was done for constitutional, cardiovascular, GI, pulmonary. relevant finding as above Active Medications Cefazolin Sodium 2 gm/ Sodium (Chloride) 50 mls @ 100 mls/hr IVPB Q8HR [facility] Last Admin: 01/22/20 15:34 Dose: 100 mls/hr Documented by: Vancomycin HCl 1,250 mg/ (Sodium Chloride) 250 mls @ 125 mls/hr IVPB Q8H [facility] Last Admin: 01/22/20 10:57 Dose: 125 mls/hr Documented by: Miscellaneous Information (Vancomycin Trough Due) 0 each MISCELLANE DIRECTED ONE Stop: 01/23/20 09:01 Mupirocin (Bactroban Oint) 1 applic TOPICAL TID [facility] Last Admin: 01/22/20 15:35 Dose: 1 applic Documented by: Naproxen (Naprosyn) 250 mg PO TID [facility] Last Admin: 01/22/20 15:42 Dose: 250 mg Documented by: Physical examination: VITAL SIGNS: 98.6, 78, 16, 128/83, 96% room air GENERAL:, comfortable. EYES: Pupils equal. Conjunctiva normal. HEENT: External appearance of nose and ears normal, oral cavity grossly normal. Patient has multiple areas of abscess in the acevedo area, comfortable. More on the right side compared to the left side. Scattered areas also.-Improving NECK: JVD not raised; masses not palpable. HEART: First and second heart sounds are normal; no edema. LUNGS: Respiratory rate normal; clear to auscultation. ABDOMEN: Soft, nontender, liver spleen not palpable, no masses palpable. PSYCH: Alert and oriented x3; mood and affect normal. INVESTIGATIONS, reviewed in the clinical context: White count 10.4 hemoglobin 15 potassium 4.7 Repeat Wound cultures- rare yeast and rare gram-positive cocci Admission labs: White count 12.5 Assessment: -This is a patient is at 4 weeks of infection and the acevdeo area has use of udlr-sid-chobsxe medications and discontinued uses a razor up to 4 days ago. Patient seems to have a combination of erysipelas and multiple folliculitis with repeated infections. And surrounding cellulitis.-Improving slowly -Leukocytosis from infection-improving -Possible underlying tinea infection. Plan: -Discussed with Dr. Moraes from general surgery-since is already draining on its own no need for I&D. On IV cefazolin and IV vancomycin per Dr. barboza.. We will add fluconazole 150 mg once a week for 3 weeks starting today.
[2020-01-22] MEDS ORDERED: FLUCONAZOLE 150 MG TAB PO STA (19:53)
[2020-01-23] MEDS: VANCOMYCIN 1,250 MG in SODIUM CHLORIDE 0.9% 250 ML IVPB SCH ×2 (02:08→11:17)
[2020-01-23 08:07] VITALS: BP 117/83; PULSE 67; RESP 16; TEMP 98.4
[2020-01-23] MEDS: NAPROXEN 250 MG TAB PO SCH (08:39)
[2020-01-23] MEDS ORDERED: VANCOMYCIN TROUGH DUE 1 EACH MISC MISCELLANE ONE (09:00)
[2020-01-23 09:12] LABS: African American GFR (CKD) >90 (>60 ml/min/1.73 sqM); Anion Gap 5 mmol/L; Blood Urea Nitrogen 14 mg/dL (9-20); Calcium 8.7 mg/dL (8.4-10.2); Carbon Dioxide 30 mmol/L (22-30); Chloride 104 mmol/L (98-107); Glucose 102 mg/dL (74-99); Non-African American GFR(CKD) >90 (>60 ml/min/1.73 sqM); Potassium 4.3 mmol/L (3.5-5.1); Sodium 139 mmol/L (137-145)
[2020-01-23] MEDS: MUPIROCIN 2% OINT 22 GM TUBE TOPICAL SCH (11:17)
--- NOTE | 2020-01-23 12:22 | P.PN ---
Subjective Progress Note Date: 01/23/20 CHIEF COMPLAINT: Facial abscess HISTORY OF PRESENT ILLNESS: Patient seen and examined at the bedside. Patient states his pain is tolerable. Vital signs stable. Patient is afebrile. PHYSICAL EXAM: VITAL SIGNS: Reviewed. GENERAL: Well-developed in no acute distress. HEENT: No sclera icterus. Extraocular movements grossly intact. Moist buccal mucosa. Head is atraumatic, normocephalic. ABDOMEN: Soft. Nondistended. Nontender. NEUROLOGIC: Alert and oriented. Cranial nerves II through XII grossly intact. SKIN: Patient with abscess to right and left side of jawline ASSESSMENT: 1. Facial abscess PLAN: -Continue antibiotics -Infectious disease following -No surgical intervention recommended at this time per Dr. Moraes -We will sign off. Please reconsult if needed. Nurse practitioner note has been reviewed by physician. Signing provider agrees with the documented findings, assessment, and plan of care. Objective - Vital Signs Vital signs: Vital Signs Temp 98.4 F 01/23/20 07:00 Pulse 67 01/23/20 07:00 Resp 16 01/23/20 07:00 BP 117/83 01/23/20 07:00 Pulse Ox 96 01/23/20 07:00 Intake & Output 01/22/20 01/23/20 01/23/20 18:59 06:59 18:59 Intake Total 680 Balance 680 Intake: Intake, IV Titration 300 Amount Vancomycin 1,250 mg In 250 Sodium Chloride 0.9% 250 ml @ 125 mls/hr IVPB Q8H [facility] Rx#:[id number] ceFAZolin 2 gm In Sodium 50 Chloride 0.9% 50 ml @ 100 mls/hr IVPB Q8HR [facility] Rx# :[id number] Oral 380 Other: Voiding Method Toilet Toilet # Voids 2 1 2 - Labs CBC & Chem 7: 01/20/20 06:57 01/23/20 08:40 Labs: Abnormal Lab Results - Last 24 Hours (Table) 01/23/20 Range/Units 08:40 Glucose 102 H (74-99) mg/dL
--- NOTE | 2020-01-23 14:16 | PN ---
PROGRESS NOTE DATE OF SERVICE: 01/23/2020 REASON FOR FOLLOW UP: Facial abscess and cellulitis noted the patient is currently afebrile. He was seen on rounds this morning. Overall pain and discomfort to the right facial area has improved. No chest pain or shortness of breath or cough. No abdominal pain or diarrhea. PHYSICAL EXAMINATION: Blood pressure is 117/83 with a pulse of 67, temperature 98.4. He is 96% on room air. General description is a young male up in the room in no distress. Right facial swelling and redness has improved. LUNGS: Unlabored breathing, clear to auscultation anteriorly. HEART: S1, S2. Regular rate and rhythm. LABS: Creatinine 0.72. Vancomycin trough has been low at 7.7. Culture showing a gram- positive, not completed. DIAGNOSTIC IMPRESSION AND PLAN: Patient with right facial abscess, cellulitis with spontaneous drainage. Culture with gram-positive, possibly strep or MSSA as the patient clinically responded to cefazolin. Vancomycin trough has been very low. Will recommend finish therapy with oral Keflex 500 mg p.o. q.6 hours for 10 days. Prescription has been sent to the pharmacy, questions and concerns were answered. MMODL / IJN: [id number] /
--- NOTE | 2020-01-23 22:40 | P.DS ---
Providers Date of admission: 01/18/20 02:20 Expected date of discharge: 01/23/20 Attending physician: Nicola Thomas Consults: 01/18/20 02:20 Consult Physician Routine Consulting Provider: Lorena Barboza Consult Reason/Comments: infevtions Do you want consulting provider notified?: Yes Primary care physician: [facility] Course: Chief Complaint: Infection of the cheek History of presenting complaint: This is a pleasant 34-year-old patient of Dr. Hayes. In rather good health. Patient about 4 weeks ago started getting what he thought was a requiring infection of the right cheek. Patient was using some pdux-xxe-jdrlqxg cream. Does some improvement in the last 2 weeks he started getting worse. Patient does use a razor on his face and shaves every day. Started becoming painful and red. More swollen on the right side. Patient also had similar lesions on the left side. Patient last shaved was about 3 days ago. Patient has multiple areas of red areas with some discharge and tenderness on the right side of the face. Also on the left side of the face in the acevedo area. Denies any fever and chills. No toothache. Patient is able to chew. Able to get around. Admitted with severe cellulitis and folliculitis of both the cheeks more on the right side. Started on IV vancomycin and IV Ancef as per Dr. barboza from ID. Patient also given 1 dose of one 50 mg of Diflucan to cover any underlying tinea infection. Which is possible. Seen by Dr. Moraes. Not felt to be candidate for I&D. Couple of abscess did drain. Today-Discharge planning was discussed with the patient. Also Dr. Barboza. Patient again reminded not to shave Consultation: Dr. barboza from ID Physical examination: VITAL SIGNS: 98.4, 67, 16, 117/83, 96% room air GENERAL:, comfortable. EYES: Pupils equal. Conjunctiva normal. HEENT: External appearance of nose and ears normal, oral cavity grossly normal. Patient has multiple areas of abscess in the acevedo area, comfortable. More on the right side compared to the left side. Scattered areas also.-Improving NECK: JVD not raised; masses not palpable. HEART: First and second heart sounds are normal; no edema. LUNGS: Respiratory rate normal; clear to auscultation. ABDOMEN: Soft, nontender, liver spleen not palpable, no masses palpable. PSYCH: Alert and oriented x3; mood and affect normal. INVESTIGATIONS, reviewed in the clinical context: Potassium 4.3 creatinine 0.78 Repeat Wound cultures- rare yeast and rare gram-positive cocci Admission labs: White count 12.5 Assessment: -Acute right cheek multiple folliculitis and the left cheek with secondary abscess and surrounding cellulitis having failed outpatient treatment -Leukocytosis from infection-improving -Possible underlying tinea infection. Disposition: Home Patient Condition at Discharge: Stable Plan - Discharge Summary Discharge Rx Participant: No New Discharge Prescriptions: New Cephalexin [Keflex] 500 mg PO Q6HR #40 cap Doxycycline [Vibramycin] 100 mg PO BID #20 capsule Mupirocin 2% Oint [Bactroban 2% Oint] 1 applic TOPICAL TID applic Fluconazole [Diflucan] 150 mg PO DIRECTED #2 tab Naproxen [Naprosyn] 250 mg PO TID #21 tab Discontinued Sulfamethoxazole/Trimethoprim [Bactrim DS 800-160 mg] 1 each PO BID Discharge Medication List Cephalexin [Keflex] 500 mg PO Q6HR #40 cap 01/23/20 [Rx] Doxycycline [Vibramycin] 100 mg PO BID #20 capsule 01/23/20 [Rx] Fluconazole [Diflucan] 150 mg PO DIRECTED #2 tab 01/23/20 [Rx] Mupirocin 2% Oint [Bactroban 2% Oint] 1 applic TOPICAL TID applic 01/23/20 [Rx] Naproxen [Naprosyn] 250 mg PO TID #21 tab 01/23/20 [Rx] Follow up Appointment(s)/Referral(s): Alvaro Hayes MD [Primary Care Provider] - 01/27/20 8:30 am ([facility]) Lorena Barboza MD [STAFF PHYSICIAN] - 02/04/20 11:00 am Patient Instructions/Handouts: Cellulitis (DC)
== END 2020-01-23 11:50 | disposition home or self-care (01) | DRG 603 ==
LOC: SUPCPDRO 23:18 → EC 23:18 → 4SSUR 01-18 02:20
PROVIDERS: ADMIT Hospitalist; ATTEND Hospitalist
DX: L02.01 Cutaneous abscess of face (principal); L03.211 Cellulitis of face; Z11.59 Encounter for screening for other viral diseases; L73.9 Follicular disorder, unspecified; A46 Erysipelas; D72.829 Elevated white blood cell count, unspecified; B35.9 Dermatophytosis, unspecified; B96.89 Other specified bacterial agents as the cause of diseases classified elsewhere; Z98.890 Other specified postprocedural states; Z95.1 Presence of aortocoronary bypass graft; Z88.5 Allergy status to narcotic agent
CPT/HCPCS: 80048; 80202; 82565; 84145; 85025; 87070; 87205; 96361; 96365; 96375; 99284